=== PATIENT | male | born 1995 | race African-American/Black ===

== ENCOUNTER → 2024-09-22 11:19 | Outpatient (REF) | payer OTHER, SELFPAY ==
[2024-09-22 15:48] LABS: Hepatitis B Surface Antibody Indeterminate
[2024-09-22 16:15] LABS: Rubella Negative
[2024-09-25 04:37] LABS: Quantiferon Mitogen minus NIL 9.96 IU/mL; Quantiferon NIL 0.04 IU/mL; Quantiferon Plus TB1 minus NIL 0.02 IU/mL (<=0.34); Quantiferon Plus TB2 minus NIL 0.01 IU/mL (<=0.34); Quantiferon TB Gold Plus Negative (Negative)
== END ==
LOC: REG 11:19
PROVIDERS: ATTENDING PHYSICIAN Nurse Practitioner Family
DX: Z23 Encounter for immunization (principal)
CPT/HCPCS: 36415; 86480; 86706; 86735; 86762; 86765; 86787